=== PATIENT | male | born 1970 | race African-American/Black ===

== ENCOUNTER → 2017-02-11 | Outpatient (CLI) | payer OTHER ==
--- NOTE | 2017-02-11 21:08 | MR ---
EXAMINATION TYPE: MR lumbar spine wo con DATE OF EXAM: 02/11/2017 COMPARISON: NONE HISTORY: LBP, BLE radic since 2013 TECHNIQUE: T1 and T2 axial and sagittal images of the lumbar spine are submitted. FINDINGS: There is no abnormal signal seen within the visualized spinal cord or paraspinal soft tissu es. At T12-L1, no definite abnormality is seen. At L1-L2, there is disc space loss. Moderate degenerative disc disease. No canal stenosis or disc her niation. Neural foramina remain patent. Very mild circumferential disc bulging stable. At L2-L3, ther e is mild disc space loss. Moderate degenerative disc disease with circumferential disc bulging and m arked facet arthropathy with ligamentum flavum hypertrophy. This results in mild canal stenosis and m ild bilateral foraminal encroachment. At L3-L4, there is disc space loss. There is a diffuse disc dis placement broad-based central bulging which is stable. The intervertebral foramina are well maintaine d. There are fairly marked hypertrophic changes and mild capsulitis within the facets. There is mild bilateral foraminal encroachment and mild central stenosis. At L4-L5, there is disc space loss. There is fatty endplate change. The intervertebral foramina are m oderately narrowed bilaterally greater on the right. There is a disc endplate complex posteriorly dif fuse disc bulging.. This in combination with hypertrophic changes in the facets is causing moderate t o severe central canal stenosis. 3 mm synovial cyst involving the left facet joint results in lateral compression of the thecal sac. At L5-S1, there are fairly marked hypertrophic changes of the facets. Circumferential disc bulging. R esults in mild central stenosis and mild bilateral foraminal encroachment. Lateral recess stenosis no fabiola bilaterally. Greater on the left. Findings greater on the left. IMPRESSION: 1. Multilevel degenerative disc disease and disc bulging resulting in multilevel canal stenosis with the most marked findings at L4-L5. 2. Findings appear fairly stable relative the previous exam. 3 3 mm synovial cyst involving the left facet joint L4-L5.
== END | disposition home or self-care (01) ==
LOC: RADMRIMAIN 20:23
PROVIDERS: ATTEND Orthopaedic Surgery Orthopaedic Surgery of the Spine
DX: M48.06 Spinal stenosis, lumbar region (principal); M51.26 Other intervertebral disc displacement, lumbar region; M51.36 Other intervertebral disc degeneration, lumbar region; M71.38 Other bursal cyst, other site
CPT/HCPCS: 72148

== ENCOUNTER 2017-11-23 03:32 | Emergency (ER) | payer OTHER ==
[2017-11-23 03:37] VITALS: BP 140/85; PULSE 66; RESP 22; TEMP 97.9
[2017-11-23] MEDS ORDERED: BUPIVACAINE (PF) 0.5% 30 ML VIAL SQ STA (03:45)
[2017-11-23] MEDS ORDERED: KETOROLAC 30 MG/ML 1 ML VIAL IM STA (03:45)
[2017-11-23] MEDS ORDERED: PENICILLIN VK 500MG STARTER 4 TAB BTL PO STA (03:48)
[2017-11-23] MEDS ORDERED: ACET/COD 300 MG/30 MG STARTER PACK 6 TAB BTL PO STA (03:48)
--- NOTE | 2017-11-23 03:49 | ED ---
ENT HPI - General Chief complaint: Dental/Oral Stated complaint: Dental Pain Time Seen by Provider: 11/23/17 03:41 Source: patient Mode of arrival: wheelchair Limitations: no limitations - History of Present Illness Initial comments: 47-year-old male patient presents to the emergency department today for evaluation of right lower dental pain. Patient states that to the tooth has been bothering him for the last couple of days. States that he was eating a burger earlier today which made his pain suddenly worse. Patient states that he did put some Orajel on the tooth didn't seem to help much. Patient woke from sleep approximately half an hour ago with severe pain to the right lower jaw. He denies any trismus or difficulty swallowing. He denies any nausea or vomiting. Denies any fevers or chills. Patient denies any recent rash, fever, chills, shortness breath, chest pain, abdominal pain, diarrhea, constipation, back pain, numbness, tingling, dizziness, weakness, hematuria, dysuria, urinary urgency, urinary frequency, headache, visual changes, or any other complaints. - Related Data Home Medications Medication Instructions Recorded Confirmed Diazepam [Valium] 10 mg PO QID PRN 11/20/14 01/18/16 Metoprolol Tartrate 25 mg PO BID 01/08/16 01/18/16 Sennosides [Senna] 8.6 mg PO BID 01/08/16 01/18/16 Aspirin EC [Ecotrin Low Dose] 81 mg PO DAILY 01/12/16 01/18/16 Atorvastatin [Lipitor] 40 mg PO HS 01/12/16 01/18/16 Docusate [Colace] 100 mg PO BID 01/12/16 01/18/16 Pregabalin [Lyrica] 50 mg PO BID 01/12/16 01/18/16 oxyCODONE HCL 10 mg PO Q6HR PRN 01/12/16 01/18/16 Nitroglycerin Sl Tabs [Nitrostat] 0.4 mg SUBLINGUAL Q5M PRN 01/18/16 01/18/16 Previous Rx's Medication Instructions Recorded Clopidogrel [Plavix] 75 mg PO DAILY #30 tab 06/16/14 Citalopram Hydrobromide [CeleXA] 20 mg PO DAILY #30 tab 01/19/16 Acetaminophen-Codeine 300-30mg 1 tab PO Q6H PRN #12 tablet 11/23/17 [Tylenol #3] Ibuprofen [Motrin] 600 mg PO Q8HR PRN #30 tab 11/23/17 Penicillin V Potassium [Pen Vee K] 500 mg PO Q6H #40 tablet 11/23/17 Allergies Allergy/AdvReac Type Severity Reaction Status Date / Time oxycodone AdvReac Unknown Swelling Verified 11/23/17 03:37 Review of Systems ROS Statement: Those systems with pertinent positive or pertinent negative responses have been documented in the HPI. ROS Other: All systems not noted in ROS Statement are negative. Past Medical History Past Medical History: Coronary Artery Disease (CAD), Hyperlipidemia, Myocardial Infarction ([place]) Additional Past Medical History / Comment(s): cervical pain-post op wearing cervical collar, states ambulations difficult, getting food together to eat difficult and has had recent falls, concerned because he lives basically alone. Was to have PT/OT and was to have appt for setting these things up today but is now admitted. History was difficult to obtain. Pt is AxOx3 but becomes very anxious and emotional when talking about his PMH. Other HX: gout bilateral legs and feet. Last Myocardial Infarction Date:: 06/13/14 History of Any Multi-Drug Resistant Organisms: None Reported Past Surgical History: Heart Catheterization With Stent, Orthopedic Surgery Additional Past Surgical History / Comment(s): 12/21/15 cervical spine fusions C3-C5, 2013 PCI with one stent, left knee arthroscopy, Past Anesthesia/Blood Transfusion Reactions: No Reported Reaction Date of Last Stent Placement:: 2013 Past Psychological History: No Psychological Hx Reported Smoking Status: Current every day smoker Past Alcohol Use History: None Reported Past Drug Use History: None Reported - Past Family History Father Family Medical History: Cancer Additional Family Medical History / Comment(s): Father is Mother Family Medical History: Hypertension, Seizure Disorder Additional Family Medical History / Comment(s): heart stents. Mother is . General Exam Limitations: no limitations General appearance: alert, in no apparent distress, other (Physical well- developed, well-nourished adult male patient in no acute distress. Vital signs upon presentation are temperature 97.9F, pulse 66, respirations 22, blood pressure 140/85, pulse ox 97% on room air.) Eye exam: Present: normal appearance, PERRL, EOMI. Absent: scleral icterus, conjunctival injection, periorbital swelling ENT exam: Present: normal oropharynx, mucous membranes moist, other (Patient has poor dentition with multiple dental caries. Patient to #30 is tender to the touch. Patient is surrounding gingival erythema but no gingival swelling. No evidence of drainable abscess.). Absent: normal exam Neck exam: Present: normal inspection. Absent: tenderness, meningismus, lymphadenopathy Respiratory exam: Present: normal lung sounds bilaterally. Absent: respiratory distress, wheezes, rales, rhonchi, stridor Cardiovascular Exam: Present: regular rate, normal rhythm, normal heart sounds. Absent: systolic murmur, diastolic murmur, rubs, gallop, clicks Neurological exam: Present: alert, oriented X3, CN II-XII intact Psychiatric exam: Present: normal affect, normal mood Skin exam: Present: warm, dry, intact, normal color. Absent: rash Course Vital Signs 11/23/17 03:34 Temperature 97.9 F Pulse Rate 66 Respiratory 22 Rate Blood Pressure 140/85 O2 Sat by Pulse 97 Oximetry Procedures - Nerve Block Consent Obtained: verbal consent Time Out Performed: Yes Local Anesthetic Used: Marcaine 0.5% Amount of anesthesia used: 3 Side: right Intraoral Nerve Block: inferior alveolar Procedure Successful: Yes (Slight relief.) Complications: none Patient Tolerated Procedure: well Medical Decision Making - Medical Decision Making 47-year-old male patient presented to the emergency department today for evaluation of right lower dental pain. Physical examination did reveal multiple dental caries and poor dentition. There is some surrounding gingival erythema but no gingival swelling. No evidence of drainable abscess. Did perform an inferior alveolar dental block, patient had minimal relief from this. Patient will be given an IM dose of Toradol and oral Tylenol 3 for pain control. He'll be discharged with pain medication prescriptions as well as penicillin. He is instructed follow up with dentistry as soon as possible. Return parameters discussed in detail. He verbalizes understanding and agree with this plan. Disposition Clinical Impression: Dental caries, Toothache Disposition: HOME SELF-CARE Condition: Good Instructions: Dental Caries (ED), Toothache (ED) Additional Instructions: Apply warm compresses to the outside of the face. Take medications as directed. Follow-up with the dentist as soon as possible. Return here immediately for any new, worsening, or concerning symptoms. Prescriptions: Acetaminophen-Codeine 300-30mg [Tylenol #3] 1 tab PO Q6H PRN #12 tablet PRN Reason: Pain Ibuprofen [Motrin] 600 mg PO Q8HR PRN #30 tab PRN Reason: Pain Penicillin V Potassium [Pen Vee K] 500 mg PO Q6H #40 tablet Is patient prescribed a controlled substance at d/c from ED?: Yes When asked, does pt state using other controlled substances?: No Referrals: Ty Singh MD [Primary Care Provider] - 1-2 days Time of Disposition: 03:55
== END 2017-11-23 04:05 | disposition home or self-care (01) ==
LOC: EC 03:32
DX: K02.9 Dental caries, unspecified (principal); I25.10 Atherosclerotic heart disease of native coronary artery without angina pectoris; E78.5 Hyperlipidemia, unspecified; I25.2 Old myocardial infarction; F17.200 Nicotine dependence, unspecified, uncomplicated; Z79.82 Long term (current) use of aspirin; Z79.899 Other long term (current) drug therapy; Z88.5 Allergy status to narcotic agent; Z95.5 Presence of coronary angioplasty implant and graft
CPT/HCPCS: 99283; 64400; 96372; J1885

== ENCOUNTER → 2017-12-05 | Outpatient (CLI) | payer OTHER ==
[2017-12-05 17:46] LABS: Cholesterol 206 mg/dL (<200); HDL Cholesterol 31 mg/dL (40-60); LDL Cholesterol,Calculated 134 mg/dL (0-99); Triglycerides 205 mg/dL (<150)
== END | disposition home or self-care (01) ==
LOC: LABWHC1 16:55
PROVIDERS: ATTEND Internal Medicine Clinical Cardiac Electrophysiology
DX: E78.5 Hyperlipidemia, unspecified (principal); I25.10 Atherosclerotic heart disease of native coronary artery without angina pectoris
CPT/HCPCS: 36415; 80061

== ENCOUNTER 2018-02-15 03:35 | Emergency (ER) | payer OTHER ==
--- NOTE | 2018-02-15 04:47 | ED ---
General Adult HPI - General Chief complaint: Dental/Oral Stated complaint: Dental pain Time Seen by Provider: 02/15/18 04:47 Source: patient Mode of arrival: wheelchair Limitations: physical limitation - History of Present Illness Initial comments: 47-year-old male history of very poor dentition and chronic dental pain presenting to the ER for evaluation of significant pain for 2 days duration. Patient reports that he has multiple dental caries and fractured teeth, he was evaluated in the spring of this year and this emergency department diagnosed with a dental abscess, treated with oral penicillin and a dental block. Patient reports that he never completed a course of penicillin because his symptoms resolved. When his pain worsened 2 days ago he began taking the penicillin again but has had no relief in the pain. He reports that he has contacted a dentist for follow-up as he is aware that he needs to have multiple teeth removed and multiple root canals. Patient presenting to the ER today with a primary complaint of pain and requesting a dental block. denies any symptoms associated with the dental pain including fevers, chills, nausea, vomiting, chest pain, palpitations. He does report a change in appetite due to the pain in his mouth but reports he has been able to drink plenty and has no change in bowel or bladder habits. - Related Data Home Medications Medication Instructions Recorded Confirmed Diazepam [Valium] 10 mg PO QID PRN 11/20/14 01/18/16 Metoprolol Tartrate 25 mg PO BID 01/08/16 01/18/16 Sennosides [Senna] 8.6 mg PO BID 01/08/16 01/18/16 Aspirin EC [Ecotrin Low Dose] 81 mg PO DAILY 01/12/16 01/18/16 Atorvastatin [Lipitor] 40 mg PO HS 01/12/16 01/18/16 Docusate [Colace] 100 mg PO BID 01/12/16 01/18/16 Pregabalin [Lyrica] 50 mg PO BID 01/12/16 01/18/16 oxyCODONE HCL 10 mg PO Q6HR PRN 01/12/16 01/18/16 Nitroglycerin Sl Tabs [Nitrostat] 0.4 mg SUBLINGUAL Q5M PRN 01/18/16 01/18/16 Previous Rx's Medication Instructions Recorded Clopidogrel [Plavix] 75 mg PO DAILY #30 tab 06/16/14 Citalopram Hydrobromide [CeleXA] 20 mg PO DAILY #30 tab 01/19/16 Acetaminophen-Codeine 300-30mg 1 tab PO Q6H PRN #12 tablet 11/23/17 [Tylenol #3] Ibuprofen [Motrin] 600 mg PO Q8HR PRN #30 tab 11/23/17 Penicillin V Potassium [Pen Vee K] 500 mg PO Q6H #40 tablet 11/23/17 Ibuprofen [Motrin] 800 mg PO Q6HR #20 tab 02/15/18 Penicillin V Potassium [Pen Vee K] 500 mg PO Q6HR 7 Days #28 tablet 02/15/18 Allergies Allergy/AdvReac Type Severity Reaction Status Date / Time No Known Allergies Allergy Verified 02/15/18 10:52 Review of Systems ROS Statement: Those systems with pertinent positive or pertinent negative responses have been documented in the HPI. ROS Other: All systems not noted in ROS Statement are negative. Past Medical History Past Medical History: Coronary Artery Disease (CAD), Hyperlipidemia, Myocardial Infarction ([place]) Additional Past Medical History / Comment(s): cervical pain-post op wearing cervical collar, states ambulations difficult, getting food together to eat difficult and has had recent falls, concerned because he lives basically alone. Was to have PT/OT and was to have appt for setting these things up today but is now admitted. History was difficult to obtain. Pt is AxOx3 but becomes very anxious and emotional when talking about his PMH. Other HX: gout bilateral legs and feet. Last Myocardial Infarction Date:: 06/13/14 History of Any Multi-Drug Resistant Organisms: None Reported Past Surgical History: Heart Catheterization With Stent, Orthopedic Surgery Additional Past Surgical History / Comment(s): 12/21/15 cervical spine fusions C3-C5, 2013 PCI with one stent, left knee arthroscopy, Past Anesthesia/Blood Transfusion Reactions: No Reported Reaction Date of Last Stent Placement:: 2013 Past Psychological History: No Psychological Hx Reported Smoking Status: Current every day smoker Past Alcohol Use History: None Reported Past Drug Use History: None Reported - Past Family History Father Family Medical History: Cancer Additional Family Medical History / Comment(s): Father is Mother Family Medical History: Hypertension, Seizure Disorder Additional Family Medical History / Comment(s): heart stents. Mother is . General Exam Limitations: physical limitation General appearance: alert, other (Appears uncomfortable) Head exam: Present: atraumatic, normocephalic Eye exam: Present: normal appearance, PERRL ENT exam: Present: other (Poor dentition with multiple dental caries, tooth fractures, some erythema of the gums on the right lateral side with no obvious abscess.) Neck exam: Present: normal inspection, full ROM, lymphadenopathy (Mild tender cervical lymphadenopathy on the right, no swelling of the submental space, no elevation of the tongue, able to speak in full sentences.). Absent: tenderness Respiratory exam: Present: normal lung sounds bilaterally Cardiovascular Exam: Present: regular rate, normal rhythm GI/Abdominal exam: Present: soft. Absent: distended Rectal exam: Present: deferred Extremities exam: Present: full ROM Neurological exam: Present: alert, oriented X3 Psychiatric exam: Present: normal affect, normal mood Skin exam: Present: warm, dry, intact Course Vital Signs 02/15/18 02/15/18 03:50 05:35 Temperature 98.4 F 97.9 F Pulse Rate 77 79 Respiratory 16 18 Rate Blood Pressure 150/79 137/89 O2 Sat by Pulse 96 96 Oximetry Procedures - Nerve Block Consent Obtained: verbal consent Time Out Performed: Yes Local Anesthetic Used: Marcaine 0.5% Side: right Intraoral Nerve Block: inferior alveolar Procedure Successful: Yes Complications: none Patient Tolerated Procedure: well Medical Decision Making - Medical Decision Making seen and evaluated, history is obtained from the patient and at bedside Patient with history of dental infections in the past, admits to not completing his oral antibiotics due to resolution of his previous symptoms, self diagnosed a dental infection and started his oral antibiotics 2 days ago but has persistent pain Dental pain is been successfully relieved with dental blocks in the past he is requesting specifically to have a dental block Risks and benefits of dental block including the possible risk of nerve damage resulting in paralysis or permanent paresthesias were discussed with the patient. Patient is aware of this risk but wishes to pursue a dental block. Inferior alveolar Dental block was performed with lidocaine and bupivacaine, patient reported near immediate improvement in his discomfort and was very grateful for treatment. Past the importance of completing his antibiotic course with the patient. I advised I will provide any prescription for penicillin. Patient has intention of contacting a dentist for further management. All questions pertaining care were answered best my ability patient was discharged home with a diagnosis of dental pain, multiple dental caries, dental fractures, no obvious dental abscess. Disposition Clinical Impression: Dental caries, Toothache Disposition: HOME SELF-CARE Condition: Fair Instructions: Dental Caries (ED), Toothache (ED) Prescriptions: Penicillin V Potassium [Pen Vee K] 500 mg PO Q6HR 7 Days #28 tablet Is patient prescribed a controlled substance at d/c from ED?: No Referrals: Ty Singh MD [Primary Care Provider] - 1-2 days Time of Disposition: 06:00
[2018-02-15] MEDS ORDERED: LIDOCAINE 1% INJ 10MG/ML (20 ML MDV) SQ ONE (05:17)
[2018-02-15] MEDS ORDERED: BUPIVACAINE (PF) 0.5% 30 ML VIAL SQ STA (05:17)
[2018-02-15 05:38] VITALS: BP 137/89; PULSE 79; RESP 18; TEMP 97.9
== END 2018-02-15 06:00 | disposition home or self-care (01) ==
LOC: EC 03:35
DX: K02.9 Dental caries, unspecified (principal); S02.5XXA Fracture of tooth (traumatic), initial encounter for closed fracture; R59.0 Localized enlarged lymph nodes; E78.5 Hyperlipidemia, unspecified; I25.10 Atherosclerotic heart disease of native coronary artery without angina pectoris; I25.2 Old myocardial infarction; M10.9 Gout, unspecified; F17.200 Nicotine dependence, unspecified, uncomplicated; Z79.82 Long term (current) use of aspirin; Z79.899 Other long term (current) drug therapy; X58.XXXA Exposure to other specified factors, initial encounter
CPT/HCPCS: 99282 ×2; 64400 ×2; 99283; J2001

== ENCOUNTER 2018-02-15 10:41 | Emergency (ER) | payer OTHER ==
[2018-02-15 10:53] VITALS: RESP 18
[2018-02-15] MEDS ORDERED: ACET/COD 300 MG/30 MG STARTER PACK 6 TAB BTL PO STA (11:14)
--- NOTE | 2018-02-15 11:19 | ED ---
General Adult HPI - General Chief complaint: Dental/Oral Stated complaint: face swelling Time Seen by Provider: 02/15/18 11:01 Source: patient, RN notes reviewed Mode of arrival: wheelchair Limitations: no limitations - History of Present Illness Initial comments: Patient 47-year-old male presented to the emergency room today with a chief complaint of increased dental pain. Patient does admit that he was seen early this morning for this and given a dental block. States he did get a couple hours of sleep. Patient states still expressing swelling pain over the right lower jawline. Patient states this started yesterday. This pain over the teeth 30 and 31. Patient denies drainage or a fall taste. Patient denies any other complaints or symptoms. Patient denies any recent fever, chills, shortness of breath, chest pain, back pain, abdominal pain, nausea or vomiting, headaches or visual changes, or any other complaints. - Related Data Home Medications Medication Instructions Recorded Confirmed Diazepam [Valium] 10 mg PO QID PRN 11/20/14 01/18/16 Metoprolol Tartrate 25 mg PO BID 01/08/16 01/18/16 Sennosides [Senna] 8.6 mg PO BID 01/08/16 01/18/16 Aspirin EC [Ecotrin Low Dose] 81 mg PO DAILY 01/12/16 01/18/16 Atorvastatin [Lipitor] 40 mg PO HS 01/12/16 01/18/16 Docusate [Colace] 100 mg PO BID 01/12/16 01/18/16 Pregabalin [Lyrica] 50 mg PO BID 01/12/16 01/18/16 oxyCODONE HCL 10 mg PO Q6HR PRN 01/12/16 01/18/16 Nitroglycerin Sl Tabs [Nitrostat] 0.4 mg SUBLINGUAL Q5M PRN 01/18/16 01/18/16 Previous Rx's Medication Instructions Recorded Clopidogrel [Plavix] 75 mg PO DAILY #30 tab 06/16/14 Citalopram Hydrobromide [CeleXA] 20 mg PO DAILY #30 tab 01/19/16 Acetaminophen-Codeine 300-30mg 1 tab PO Q6H PRN #12 tablet 11/23/17 [Tylenol #3] Ibuprofen [Motrin] 600 mg PO Q8HR PRN #30 tab 11/23/17 Penicillin V Potassium [Pen Vee K] 500 mg PO Q6H #40 tablet 11/23/17 Ibuprofen [Motrin] 800 mg PO Q6HR #20 tab 02/15/18 Penicillin V Potassium [Pen Vee K] 500 mg PO Q6HR 7 Days #28 tablet 02/15/18 Allergies Allergy/AdvReac Type Severity Reaction Status Date / Time No Known Allergies Allergy Verified 02/15/18 10:52 Review of Systems ROS Statement: Those systems with pertinent positive or pertinent negative responses have been documented in the HPI. ROS Other: All systems not noted in ROS Statement are negative. Past Medical History Past Medical History: Coronary Artery Disease (CAD), Hyperlipidemia, Myocardial Infarction ([place]) Additional Past Medical History / Comment(s): Other HX: gout bilateral legs and feet. Last Myocardial Infarction Date:: 06/13/14 History of Any Multi-Drug Resistant Organisms: None Reported Past Surgical History: Heart Catheterization With Stent, Orthopedic Surgery Additional Past Surgical History / Comment(s): 12/21/15 cervical spine fusions C3-C5, 2013 PCI with one stent, left knee arthroscopy, Past Anesthesia/Blood Transfusion Reactions: No Reported Reaction Date of Last Stent Placement:: 2013 Past Psychological History: No Psychological Hx Reported Smoking Status: Current every day smoker Past Alcohol Use History: None Reported Past Drug Use History: None Reported - Past Family History Father Family Medical History: Cancer Additional Family Medical History / Comment(s): Father is Mother Family Medical History: Hypertension, Seizure Disorder Additional Family Medical History / Comment(s): heart stents. Mother is . General Exam - General Exam Comments Initial Comments: General: The patient is awake and alert, in no distress, and does not appear acutely ill. Eye: Pupils are equal, round and reactive to light, extra-ocular movements are intact. No nystagmus. There is normal conjunctiva bilaterally. No signs of icterus. Ears, nose, mouth and throat: There are moist mucous membranes and no oral lesions. Patient does have tenderness over teeth 30 and 31. No sign of abscess. Uvula midline. Neck: The neck is supple, there is no tenderness or JVD. Musculoskeletal: Normal ROM, no tenderness. Strength 5/5. Sensation intact. Pulses equal bilaterally 2+. Neurological: A&O x 3. CN II-XII intact, There are no obvious motor or sensory deficits. Coordination appears grossly intact. Speech is normal. Skin: Skin is warm and dry and no rashes or lesions are noted. Psychiatric: Cooperative, appropriate mood & affect, normal judgment. Limitations: no limitations Course Vital Signs 02/15/18 10:50 Temperature 98.7 F Pulse Rate 86 Respiratory 18 Rate Blood Pressure 127/85 O2 Sat by Pulse 98 Oximetry Medical Decision Making - Medical Decision Making Patient advised to continue antibiotics that were started earlier this morning. Will be given a starter pack of Tylenol 3 advised continue with anti- inflammatories as well. Advised follow-up dentist in the next 2 days return if symptoms increase or worsen. Disposition Clinical Impression: Dental abscess Disposition: HOME SELF-CARE Condition: Good Instructions: Dental Abscess (ED) Additional Instructions: Please follow-up with dentist and use antibiotic and pain medication as discussed. [facility] [id number] [place] [address] [phone]) (existing clients only) For new clients: [phone] [facility] Pay $50 for x-rays and the rest discovered [phone] Prescriptions: Ibuprofen [Motrin] 800 mg PO Q6HR #20 tab Is patient prescribed a controlled substance at d/c from ED?: No Referrals: Ty Singh MD [Primary Care Provider] - 1-2 days Time of Disposition: 11:18
[2018-02-15 12:13] VITALS: BP 124/79; PULSE 70; TEMP 98
== END 2018-02-15 12:13 | disposition home or self-care (01) ==
LOC: EC 10:41
DX: K04.7 Periapical abscess without sinus (principal); I25.10 Atherosclerotic heart disease of native coronary artery without angina pectoris; E78.5 Hyperlipidemia, unspecified; I25.2 Old myocardial infarction; F17.200 Nicotine dependence, unspecified, uncomplicated; Z95.5 Presence of coronary angioplasty implant and graft; Z79.82 Long term (current) use of aspirin; Z79.899 Other long term (current) drug therapy
CPT/HCPCS: 99283

== ENCOUNTER 2019-07-04 04:16 | Emergency (ER) | payer OTHER ==
--- NOTE | 2019-07-04 04:19 | ED ---
General Adult HPI <Cielo Chairez - Last Filed: 07/04/19 04:39> <Vin Herbert - Last Filed: 07/04/19 09:02> - General Stated complaint: ETOH Time Seen by Provider: 07/04/19 04:19 - History of Present Illness Initial comments: Valerio is a pleasant 49-year-old gentleman who is brought to the ER today via EMS after his friend became concerned about his level of intoxication. Patient states he doesn't usually drink he went to the bar with friends and states he had 3 [place] iced teas. His friend drove him home he states that upon arriving home he realized he didn't have the mental capacity to both walk with his cane, hold himself up and urinate so he decided just to let himself. His pants. His friend became concerned because this seems character they called the ambulance. Awake alert oriented denies any traumas admits to drinking alcohol heavily denies any complaints. (Cielo Chairez) - Related Data Home Medications Medication Instructions Recorded Confirmed Diazepam [Valium] 10 mg PO QID PRN 11/20/14 01/18/16 Metoprolol Tartrate 25 mg PO BID 01/08/16 01/18/16 Sennosides [Senna] 8.6 mg PO BID 01/08/16 01/18/16 Aspirin EC [Ecotrin Low Dose] 81 mg PO DAILY 01/12/16 01/18/16 Atorvastatin [Lipitor] 40 mg PO HS 01/12/16 01/18/16 Docusate [Colace] 100 mg PO BID 01/12/16 01/18/16 Pregabalin [Lyrica] 50 mg PO BID 01/12/16 01/18/16 oxyCODONE HCL [oxyCODONE HCL (IR)] 10 mg PO Q6HR PRN 01/12/16 01/18/16 Nitroglycerin Sl Tabs [Nitrostat] 0.4 mg SUBLINGUAL Q5M PRN 01/18/16 01/18/16 Previous Rx's Medication Instructions Recorded Clopidogrel [Plavix] 75 mg PO DAILY #30 tab 06/16/14 Citalopram Hydrobromide [CeleXA] 20 mg PO DAILY #30 tab 01/19/16 Acetaminophen-Codeine 300-30mg 1 tab PO Q6H PRN #12 tablet 11/23/17 [Tylenol #3] Ibuprofen [Motrin] 600 mg PO Q8HR PRN #30 tab 11/23/17 Penicillin V Potassium [Pen Vee K] 500 mg PO Q6H #40 tablet 11/23/17 Ibuprofen [Motrin] 800 mg PO Q6HR #20 tab 02/15/18 Penicillin V Potassium [Pen Vee K] 500 mg PO Q6HR 7 Days #28 tablet 02/15/18 Allergies Allergy/AdvReac Type Severity Reaction Status Date / Time No Known Allergies Allergy Verified 02/15/18 10:52 Review of Systems ROS Other: All systems not noted in ROS Statement are negative. <Cielo Chairez - Last Filed: 07/04/19 04:39> ROS Other: All systems not noted in ROS Statement are negative. <Vin Herbert - Last Filed: 07/04/19 09:02> ROS Statement: Those systems with pertinent positive or pertinent negative responses have been documented in the HPI. Past Medical History Past Medical History: Coronary Artery Disease (CAD), Hyperlipidemia, Myocardial Infarction (PA) Additional Past Medical History / Comment(s): Other HX: gout bilateral legs and feet. Last Myocardial Infarction Date:: 06/13/14 History of Any Multi-Drug Resistant Organisms: None Reported Past Surgical History: Heart Catheterization With Stent, Orthopedic Surgery Additional Past Surgical History / Comment(s): 12/21/15 cervical spine fusions C3-C5, 2013 PCI with one stent, left knee arthroscopy, Past Anesthesia/Blood Transfusion Reactions: No Reported Reaction Date of Last Stent Placement:: 2013 Past Psychological History: No Psychological Hx Reported Smoking Status: Current every day smoker Past Alcohol Use History: None Reported Past Drug Use History: None Reported - Past Family History Father Family Medical History: Cancer Additional Family Medical History / Comment(s): Father is Mother Family Medical History: Hypertension, Seizure Disorder Additional Family Medical History / Comment(s): heart stents. Mother is . <Cielo Chairez P - Last Filed: 07/04/19 04:39> General Exam <Cielo Chairez P - Last Filed: 07/04/19 04:39> - General Exam Comments Initial Comments: Physical Exam GENERAL: Patient is well-developed and well-nourished. Patient is nontoxic and well- hydrated and is in no distress. HENT: Normocephalic, Atraumatic. EYES: PERRL, EOMI PULMONARY: Unlabored respirations. No audible rales rhonchi or wheezing was noted. CARDIOVASCULAR: There is a regular rate and rhythm without any murmurs gallops or rubs. ABDOMEN: Soft and nontender with normal bowel sounds. SKIN: Skin is clear with no lesions or rashes and otherwise unremarkable. : Deferred NEUROLOGIC: Patient is alert and oriented x3. Moving all extremities spontaneously MUSCULOSKELETAL: Normal extremities with adequate strength and full range of motion. No lower extremity swelling or edema. No calf tenderness. PSYCHIATRIC: Normal psychiatric evaluation. (Cielo Chairez) Course Vital Signs 07/04/19 07/04/19 07/04/19 04:19 04:40 06:09 Temperature 97.5 F L Pulse Rate 75 60 80 Respiratory 18 17 17 Rate Blood Pressure 122/79 109/61 102/68 O2 Sat by Pulse 98 95 100 Oximetry 07/04/19 07/04/19 06:19 07:00 Temperature Pulse Rate 63 71 Respiratory 16 17 Rate Blood Pressure 114/75 112/60 O2 Sat by Pulse 100 99 Oximetry Medical Decision Making <Cielo Chairez - Last Filed: 07/04/19 04:39> <Vin Herbert - Last Filed: 07/04/19 09:02> - Medical Decision Making The patient was seen and evaluated history was obtained from the patient and EMS I sinus pleasant 49-year-old gentleman who is intoxicated urinated on himself no other complaints (Cielo Chairez) Patient is alert and oriented 3 is able to call someone to pick him up. Patient's alcohol was under 0.08 (Vin Herbert) - Lab Data Lab Results 07/04/19 Range/Units 08:23 Urine Opiates Screen Not Detected (NotDetected) Ur Oxycodone Screen Not Detected (NotDetected) Urine Methadone Screen Not Detected (NotDetected) Ur Propoxyphene Screen Not Detected (NotDetected) Ur Barbiturates Screen Not Detected (NotDetected) U Tricyclic Antidepress Not Detected (NotDetected) Ur Phencyclidine Scrn Not Detected (NotDetected) Ur Amphetamines Screen Not Detected (NotDetected) U Methamphetamines Scrn Not Detected (NotDetected) U Benzodiazepines Scrn Not Detected (NotDetected) Urine Cocaine Screen Not Detected (NotDetected) U Marijuana (THC) Screen Detected H (NotDetected) Disposition <Cielo Chairez - Last Filed: 07/04/19 04:39> Is patient prescribed a controlled substance at d/c from ED?: No Time of Disposition: 09:02 <Vin Herbert - Last Filed: 07/04/19 09:02> Clinical Impression: Alcoholic intoxication Disposition: HOME SELF-CARE Instructions (If sedation given, give patient instructions): Alcohol Intoxication (ED) Referrals: None,Stated [REFERRING] - 1-2 days
[2019-07-04 04:35] VITALS: TEMP 97.5
[2019-07-04] MEDS ORDERED: SODIUM CHLORIDE 0.9% 1,000 ML IV ONE (04:42)
[2019-07-04 08:48] LABS: Amphetamine Screen,Urine Not Detected (NotDetected); Barbiturate Screen,Urine Not Detected (NotDetected); Benzodiazepines Screen,Urine Not Detected (NotDetected); Cocaine Screen,Urine Not Detected (NotDetected); Methadone Screen, Urine Not Detected (NotDetected); Opiate Screen,Urine Not Detected (NotDetected); Oxycodone Screen, Urine Not Detected (NotDetected); Phencyclidine Screen,Urine Not Detected (NotDetected); Tricyclic Antidepressant,Urine Not Detected (NotDetected); Urn Cannabinoid Scrn Detected (NotDetected)
[2019-07-04 09:01] VITALS: BP 138/74; PULSE 76; RESP 16
== END 2019-07-04 09:04 | disposition home or self-care (01) ==
LOC: EC 04:16
DX: F10.129 Alcohol abuse with intoxication, unspecified (principal); I25.10 Atherosclerotic heart disease of native coronary artery without angina pectoris; E78.5 Hyperlipidemia, unspecified; I25.2 Old myocardial infarction; M10.9 Gout, unspecified; F17.200 Nicotine dependence, unspecified, uncomplicated; Z79.82 Long term (current) use of aspirin; Z79.899 Other long term (current) drug therapy; Z95.5 Presence of coronary angioplasty implant and graft; Y90.0 Blood alcohol level of less than 20 mg/100 ml
CPT/HCPCS: 80306; 82075; 96360; 99284